=== PATIENT | male | born 1975 | race Caucasian/White ===

== ENCOUNTER 2022-12-30 13:25 | Emergency (ER) | payer OTHER, SELFPAY ==
[2022-12-30 13:27] VITALS: BP 144/77; PULSE 102; RESP 16; TEMP 36.7; O2SAT 98; BMI 25.8
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
[2022-12-30 15:08] LABS: HCO3 VBG 30 mmol/L (21-28); PCO2 VBG 51 mmHG (40-50); PO2 VBG 29.3 mmHG (25-47); pH VBG 7.382 (7.32-7.43)
[2022-12-30] MEDS: 0.9 % SODIUM CHLORIDE 1000 ml 1,000 ML IV (15:09)
[2022-12-30 15:14] LABS: Basophils Absolute Auto 0.02 K/uL (0.00-0.30); Basophils Percent Auto 0.3 % (0.0-3.0); Eosinophils Percent Auto 1.5 % (0.0-7.0); Hematocrit 41.4 % (37.0-53.0); Immature Granulocytes Abs Auto 0.07 K/uL (0.00-0.30); Immature Granulocytes Pct Auto 1.1 %; Lymphocytes Percent Auto 13.9 % (20-44); Mean Corpuscular HGB Conc 34 gm/dL (32-36); Mean Corpuscular Hemoglobin 31 pg (26-34); Mean Corpuscular Volume 92 fL (80-100); Monocytes Percent Auto 12.7 % (0.0-11.0); Neutrophils Absolute Auto 4.56 K/uL (1.7-7.0); Neutrophils Percent Auto 70.5 % (42.0-72.0); Platelet Count* 198 K/uL (140-440); RDW Coefficient of Variation % 12.6 % (11.5-15.5); Red Blood Count 4.51 m/uL (4.30-5.90); White Blood Count* 6.47 K/uL (4.50-11.00)
[2022-12-30 15:16] LABS: Slide Review Reflex No
[2022-12-30 15:45] LABS: Albumin* 4.1 g/dL (3.3-5.0); Chloride* 97 mmol/L (96-114); Sodium* 132 mmol/L (135-149)
[2022-12-30 15:46] LABS: Potassium* 4.1 mmol/L (3.6-5.1)
[2022-12-30 15:48] LABS: Alkaline Phosphatase* 160 U/L (40-150); Aspartate Amino Transferase* 27 U/L (12-35); Bilirubin Total* 0.8 mg/dL (0.1-1.5); Blood Urea Nitrogen* 18 mg/dL (5-24); Carbon Dioxide* 28 mmol/L (20-32); Creatinine* 0.8 mg/dL (0.5-1.5); Est. Creatinine Clearance* 109.02; Estimated Glomerular Filt Rate 111 ml/min; Total Protein* 7.1 g/dL (6.0-8.3)
[2022-12-30 15:49] LABS: Alanine Aminotransferase* 27 U/L (4-50); Calcium* 8.5 mg/dL (8.4-10.6)
[2022-12-30 15:51] LABS: Ethanol* < 0.01 % (0.01-0.03)
[2022-12-30 15:54] LABS: Glucose* 384 mg/dL (60-115)
[2022-12-30 16:05] VITALS: BP 131/76; PULSE 96; RESP 14; O2SAT 98
--- NOTE | 2022-12-30 16:26 | ED.NURSE ---
Pt's friend approached this nurse at the desk and wants the doctor to come talk to him specifically because he feels the pt is not being honest and needs a hold. Doctor notified.
[2022-12-30 19:10] LABS: Amphetamine Screen Urine POSITIVE (Negative); Barbiturate Screen Urine Negative (Negative); Benzodiazepines Screen Urine Negative (Negative); Cannabinoid Screen Urine Negative (Negative); Cocaine Screen Urine Negative (Negative); Methadone Screen Urine Negative (Negative); Methamphetamines Screen Urine POSITIVE (Negative); Opiate Screen Urine Negative (Negative); Oxycodone Screen Urine Negative (Negative); Phencyclidine Screen Urine Negative (Negative); Tricyclic Antidepressant Urine Negative (Negative)
[2022-12-30 19:52] VITALS: BP 155/87; PULSE 83; RESP 14; O2SAT 98
[2022-12-30 20:09] LABS: Acetaminophen* < 10.0 ug/mL (10.0-30.0); Salicylate* < 1.0 mg/dL (1.0-10)
[2022-12-30 20:33] LABS: Thyroid Stimulating Hormone* 0.377 uIU/mL (0.270-4.20)
[2022-12-30 22:40] VITALS: BP 124/72; PULSE 100; RESP 18; O2SAT 96
--- NOTE | 2022-12-30 22:54 | PC.NURSE ---
patient resting in room watching TV, given sandwich per request. patient reports no pain. BG 188 at this time
[2022-12-30 23:23] LABS: SARS PCR* POSITIVE SARS-CoV-2 (Negative)
[2022-12-31 01:00] VITALS: BP 138/87; PULSE 89; RESP 16; TEMP 37.3; O2SAT 95
--- NOTE | 2022-12-31 05:30 | PC.NURSE ---
patient visualized on video monitor for safety, RR even and non-labored. patient updated on his COVID status and states understanding of precautions. continues to be cooperative with plan of care.
[2022-12-31 06:00] VITALS: BP 145/85; PULSE 87; RESP 16; TEMP 37.3; O2SAT 95
[2022-12-31] MEDS: METFORMIN 500 MG TABLET PO (08:40)
== END 2022-12-31 10:50 | disposition home or self-care (01) ==
LOC: ED 15:01
PROVIDERS: Emergency Provider Emergency Medicine
DX: F10.10 Alcohol abuse, uncomplicated (principal); E11.65 Type 2 diabetes mellitus with hyperglycemia; F32.A Depression, unspecified
CPT/HCPCS: 36415; 80053; 80143; 80179; 80306; 82077; 82803; 82962; 84443; 85025; 87635; 99284; A9270; J7030